=== PATIENT | female | born 1970 | race American Indian/Alaskan Native ===

== ENCOUNTER 2016-08-10 17:14 | Emergency (ER) | payer MEDICARE, OTHER ==
[2016-08-10 17:23] VITALS: TEMP 98.1; O2SAT 100
[2016-08-10 18:59] LABS: MEAN CELL VOLUME 77.6 fl (81.0-99.0); MEAN CORPUSCULAR HEMOGLOBIN 23.6 pg (27.0-31.0); MEAN CORPUSCULAR HGB CONC 30.4 g/dL (33.0-37.0); RED CELL DISTRIBUTION WIDTH 18.1 % (11.5-14.5); WHITE BLOOD COUNT 6.6 K/uL (4.8-10.8)
[2016-08-10 19:21] LABS: ALKALINE PHOSPHATASE 79 U/L (38-126); ALT/SGPT 15 U/L (9-52); AST/SGOT 29 U/L (14-36); BILIRUBIN,TOTAL 0.8 mg/dl (0.2-1.3); BLOOD UREA NITROGEN 15 mg/dl (7-17); CALCIUM 10.1 mg/dL (8.4-10.2); CARBON DIOXIDE 25 mmol/L (22-30); CHLORIDE 98 mmol/L (98-107); GFR AFRICAN-AMERICAN > 60; GLUCOSE,RANDOM 105 mg/dL (65-105); SODIUM 140 mmol/l (132-148); TOTAL PROTEIN 8.6 G/DL (6.3-8.2)
[2016-08-10 19:27] LABS: POTASSIUM 3.9 MMOL/L (3.6-5.0)
--- NOTE | 2016-08-10 19:31 | ED PDOC ---
HPI: Headache Time Seen by Provider: 08/10/16 17:25 Chief Complaint (Nursing): Headache Chief Complaint (Provider): Headache History Per: Patient History/Exam Limitations: no limitations Onset/Duration Of Symptoms: Days (x4), Gradual Current Symptoms Are (Timing): Better Severity: Moderate Quality: Other (left-sided) Associated Symptoms: denies: Blurred Vision, Nausea, Vomiting, Extremity Weakness Additional Complaint(s): Bowen Ahn is a 46 year old female, with a past medical history inclusive of HTN, who presents to the ED on 08/10/16 for the evaluation of a moderate, left-sided headache that she has experienced x4 days. Headache, further described as gradual onset, has only been transiently relieved with Tylenol x1, prompting today's ED visit. Denies vision loss, nausea, vomiting or extremity weakness. PMD: Jose Miguel Yip Past Medical History Reviewed: Historical Data, Nursing Documentation, Vital Signs Vital Signs: Last Vital Signs Temp 98.1 F 08/10/16 17:20 Pulse Resp 79 H 08/10/16 17:20 BP 120/85 08/10/16 17:20 Pulse Ox 100 08/10/16 17:20 - Medical History PMH: HTN - Surgical History Surgical History: No Surg Hx - Family History Family History: States: Unknown Family Hx - Home Medications Home Medications: Ambulatory Orders Medication Instructions Recorded LORazepam [Ativan] 1 mg PO Q8H PRN #5 tab 02/07/16 - Allergies Allergies/Adverse Reactions: Allergies Allergy/AdvReac Type Severity Reaction Status Date / Time Penicillins Allergy RASH Verified 02/07/16 00:18 Review of Systems ROS Statement: Except As Marked, All Systems Reviewed And Found Negative Eyes: Negative for: Vision Change Gastrointestinal: Negative for: Nausea, Vomiting Neurological: Positive for: Headache (left-sided, gradual onset). Negative for : Weakness Physical Exam - Reviewed Nursing Documentation Reviewed: Yes Vital Signs Reviewed: Yes - Physical Exam Appears: Positive for: Non-toxic, No Acute Distress Head Exam: Positive for: ATRAUMATIC, NORMAL INSPECTION, NORMOCEPHALIC Skin: Positive for: Normal Color, Warm, Dry Eye Exam: Positive for: Normal appearance, EOMI, PERRL Neck: Positive for: Normal, Painless ROM, Supple Cardiovascular/Chest: Positive for: Regular Rate, Rhythm. Negative for: Murmur Respiratory: Positive for: Normal Breath Sounds. Negative for: Respiratory Distress Extremity: Positive for: Normal ROM (FROM x4 extremities). 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 Negative for: Motor/Sensory Deficits, Aphasia, Facial Droop - Laboratory Results Result Diagrams: 08/10/16 18:52 08/10/16 18:52 - ECG O2 Sat by Pulse Oximetry: 100 (RA) Pulse Ox Interpretation: Normal Medical Decision Making Medical Decision Makin:25 Initial Impression: headache Initial Plan: * Labs * ESR * CRP * Reevaluation 19:30 Labs reviewed with no clinically significant abnormalities. Except ESR which is pending. Discussed with patient, who states she is concerned. PT took tylenol X [employer] and reports pain but does not want medication in ER. CT ordered. Upon provider reevaluation patient is medically stable and requires no further treatment in the ED at this time, will discharge home. Counseling provided regarding diagnosis and need for followup with her PMD should symptoms persist/ not improve. All questions answered. There is agreement to discharge plan, return for acute worsening of symptoms. Clinical Impression: headache Scribe Attestation: Documented by Carlene Gleason, acting as a scribe for Melani Montaño PA-C. Provider Scribe Attestation: All medical record entries made by the Scribe were at my direction and personally dictated by me. I have reviewed the chart and agree that the record accurately reflects my personal performance of the history, physical exam, medical decision making, and the department course for this patient. I have also personally directed, reviewed, and agree with the discharge instructions and disposition. Disposition - Clinical Impression Clinical Impression: Headache - Patient ED Disposition Is Patient to be Admitted: Transfer of Care - Disposition Referrals: Jose Miguel Yip MD [Primary Care Provider] - Disposition: Transfer of Care Disposition Time: 20:00 Condition: STABLE
--- NOTE | 2016-08-10 20:12 | ED PDOC ---
- Laboratory Results Result Diagrams: 08/10/16 18:52 08/10/16 18:52 - ECG O2 Sat by Pulse Oximetry: 100 (RA) Pulse Ox Interpretation: Normal - Other Rad CT head X-Ray: Read By Radiologist X-Ray Interpretation: no acute finding - Progress ED Course And Treament: Case was signed out to sql report writer from SAMARA Montaño pending CT head. Medical Decision Making Medical Decision Making: Patient is aware of CT results. She states headache relieved with tylenol. Patient was given copy of labs and was instructed to follow up with her PMD. Disposition - Clinical Impression Clinical Impression: Headache - POA Present On Arrival: None - Disposition Referrals: Jose Miguel Yip MD [Primary Care Provider] - Disposition: Routine/Home Disposition Time: 21:16 Condition: IMPROVED Additional Instructions: Continue Tylenol for pain as needed. Drink plenty of fluids. Follow up as scheduled next week with clinic or return any time if acutely worse. Instructions: General Headache (ED)
[2016-08-10 20:23] VITALS: BP 125/80; PULSE 75; RESP 16
--- NOTE | 2016-08-10 20:57 | CT ---
EXAM: CT Head Without Intravenous Contrast CLINICAL HISTORY: 46 years old, female; Pain; Headache; Headache not specified TECHNIQUE: Axial computed tomography images of the head/brain without intravenous contrast. This CT exam was performed using one or more of the following dose reduction techniques: automated exposure control, adjustment of the mA and/or kV according to patient size, and/or use of iterative reconstruction technique. Coronal and sagittal reformatted images were created and reviewed. COMPARISON: No relevant prior studies available. FINDINGS: Brain: No hemorrhage. No edema. Mild bilateral periventricular white matter hypoattenuation most consistent with mild chronic ischemic small vessel changes. Ventricles: No hydrocephalus. Bones: Skull is intact. Sinuses: No acute sinusitis. Mastoid air cells: No mastoid effusion. IMPRESSION: No CT evidence of acute intracranial abnormality.
== END 2016-08-10 21:24 | disposition home or self-care (01) ==
LOC: H.ER 17:14
DX: R51 Headache (principal); I10 Essential (primary) hypertension

== ENCOUNTER 2016-11-24 12:28 | Observation (INO) | payer MEDICARE, OTHER ==
[2016-11-24 12:37] VITALS: TEMP 98.7
[2016-11-24] MEDS ORDERED: Sodium Chloride 0.9% 1,000 ML IV STA (13:10)
--- NOTE | 2016-11-24 13:15 | ED PDOC ---
HPI: General Adult Time Seen by Provider: 11/24/16 12:38 Chief Complaint (Nursing): Dizziness/Lightheaded Chief Complaint (Provider): low blood pressure History Per: Patient History/Exam Limitations: no limitations Additional Complaint(s): Bowen Ahn is a 46 year old female, with a previous medical history of hypertension, who presents to the ED for the evaluation of low blood pressure which she reported to be 85/57 after accidentally taking an extra dose of her atenolol/chlorthalidone 100-25 pill earlier this morning. She reports taking the first pill 6.5 hours prior to arrival then forgetting that she took the initial pill and took another pill 3 hours after that. She denies any symptoms of fatigue, dizziness, visual changes, chest pain, shortness of breath, nausea, vomiting, abdominal pain, headache, numbness, tingling or weakness. She reports no active medical complaints at this time. PMD: Jose Mgiuel Yip MD Past Medical History Reviewed: Historical Data, Nursing Documentation, Vital Signs Vital Signs: Last Vital Signs Temp 98.7 F 11/24/16 12:34 Pulse 71 11/24/16 16:01 Resp 16 11/24/16 16:01 BP 111/65 11/24/16 16:01 Pulse Ox 99 11/24/16 16:01 - Medical History PMH: HTN - Surgical History Surgical History: No Surg Hx - Family History Family History: States: Unknown Family Hx - Social History Current smoker - smoking cessation education provided: No Alcohol: None Drugs: Denies - Home Medications Home Medications: Ambulatory Orders Medication Instructions Recorded LORazepam [Ativan] 1 mg PO Q8H PRN #5 tab 02/07/16 - Allergies Allergies/Adverse Reactions: Allergies Allergy/AdvReac Type Severity Reaction Status Date / Time Penicillins Allergy RASH Verified 11/24/16 12:33 Review of Systems ROS Statement: Except As Marked, All Systems Reviewed And Found Negative Eyes: Negative for: Vision Change Cardiovascular: Negative for: Chest Pain, Palpitations Respiratory: Negative for: Shortness of Breath Gastrointestinal: Negative for: Nausea, Vomiting, Abdominal Pain, Diarrhea Musculoskeletal: Negative for: Leg Pain Neurological: Negative for: Weakness, Numbness, Headache, Dizziness, Other ( tingling ) Physical Exam - Reviewed Nursing Documentation Reviewed: Yes Vital Signs Reviewed: Yes - Physical Exam Appears: Positive for: Well, Non-toxic, No Acute Distress Head Exam: Positive for: ATRAUMATIC, NORMAL INSPECTION, NORMOCEPHALIC Skin: Positive for: Normal Color, Warm, Dry Eye Exam: Positive for: Normal appearance, EOMI, PERRL. Negative for: Nystagmus ENT: Positive for: Normal ENT Inspection Neck: Positive for: Normal, Painless ROM Cardiovascular/Chest: Positive for: Regular Rate, Rhythm. Negative for: Murmur , Bradycardia, Tachycardia Respiratory: Positive for: CNT, Normal Breath Sounds Gastrointestinal/Abdominal: Positive for: Normal Exam, Bowel Sounds, Soft. Negative for: Tenderness Back: Positive for: Normal Inspection. Negative for: L CVA Tenderness, R CVA Tenderness Extremity: Positive for: Normal ROM. 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 Negative for: Motor/Sensory Deficits - Laboratory Results Result Diagrams: 11/24/16 13:30 11/24/16 13:30 Interpretation Of Abn Labs: 3.3 K; 9.1 hg - ECG ECG: Positive for: Interpreted By Me, Viewed By Me ECG Rhythm: Positive for: Normal QRS, Normal ST Segment, Sinus Rhythm O2 Sat by Pulse Oximetry: 98 (RA) Pulse Ox Interpretation: Normal Medical Decision Making Medical Decision Making: Initial Plan: * EKG * Troponin I * labs * IV NS 1,000 ml at 1,000 ml/hr * ED obs * reevaluation 13:09 Spoke with poison control who recommended patient be closely monitored for 3 hours and if continues to be stable is able to be discharged. Scribe Attestation: Documented by Bernice Henderson, acting as a scribe for Donald Baum MD. Provider Scribe Attestation: All medical record entries made by the Scribe were at my direction and personally dictated by me. I have reviewed the chart and agree that the record accurately reflects my personal performance of the history, physical exam, medical decision making, and the department course for this patient. I have also personally directed, reviewed, and agree with the discharge instructions and disposition. ED OBSERVATION Discharge: Yes Date of observation admission: 11/24/16 Time of observation admission: 13:11 - Observation admission statement Patient is being placed in observation because:: To continue monitoring blood pressure and symptoms. Patient is currently asymptomatic and stable. - Goals of Observation Goals of observation are:: Maintain stable blood pressure with no symptoms. - Progress Note Progress Note: 11/24/16 15:42 Patient is resting comfortably with blood pressure maintained. BP 111/65 11/24/16 16:41 AAOx3. Tolerated PO. Fu with pcp. Ambulated with no issues. Disposition - Clinical Impression Clinical Impression: Hypokalemia, Medication administered in error, Anemia - Patient ED Disposition Is Patient to be Admitted: No Counseled Patient/Family Regarding: Studies Performed, Diagnosis, Need For Followup - Disposition Disposition: Routine/Home Disposition Time: 16:42 Condition: STABLE
[2016-11-24 13:53] LABS: BASO % 0.7 % (0.0-2.0); EOS # 0.1 K/uL (0.0-0.7); EOS % 1.3 % (0.0-4.0); HEMOGLOBIN 9.1 g/dL (12.0-16.0); LYMPH # 1.7 K/uL (1.0-4.3); LYMPH % 34.4 % (20.0-40.0); MEAN CORPUSCULAR HEMOGLOBIN 22.1 pg (27.0-31.0); MEAN CORPUSCULAR HGB CONC 30.6 g/dL (33.0-37.0); MEAN PLATELET VOLUME 7.9 fl (7.2-11.7); MONO # 0.4 K/uL (0.0-0.8); NEUT # 2.7 K/uL (1.8-7.0); NEUT % 55.6 % (50.0-75.0); NRBC % 0.2 % (0.0-0.0); RBC 4.12 Mil/uL (3.80-5.20); RED CELL DISTRIBUTION WIDTH 17.9 % (11.5-14.5); WHITE BLOOD COUNT 4.9 K/uL (4.8-10.8)
[2016-11-24 13:55] LABS: ALB/GLOB RATIO 1.4 (1.0-2.1); ALBUMIN 4.6 g/dL (3.5-5.0); ALT/SGPT 34 U/L (9-52); AST/SGOT 21 U/L (14-36); BLOOD UREA NITROGEN 10 mg/dl (7-17); CALCIUM 9.3 mg/dL (8.4-10.2); GFR AFRICAN-AMERICAN > 60; GFR NON-AFRICAN AMERICAN > 60
[2016-11-24 16:02] VITALS: RESP 16
[2016-11-24] MEDS ORDERED: Potassium Chloride 20 mEq ER Tab PO ONE (16:40)
[2016-11-24 17:09] VITALS: BP 116/79; PULSE 95; O2SAT 99
--- NOTE | 2016-11-25 20:54 | CARD ---
APPROVED REPORT EKG Measurement Heart [id number] <Conclusion> Normal sinus rhythm Minimal voltage criteria for LVH, may be normal variant Borderline ECG
== END 2016-11-24 17:09 | disposition home or self-care (01) ==
LOC: H.ER 12:28 → H.EROBSV 13:10
PROVIDERS: ADMIT Emergency Medicine; ATTEND Emergency Medicine
DX: E87.6 Hypokalemia (principal); T44.7X1A Poisoning by beta-adrenoreceptor antagonists, accidental (unintentional), initial encounter; I95.2 Hypotension due to drugs; I10 Essential (primary) hypertension; D64.9 Anemia, unspecified; Z88.0 Allergy status to penicillin
CPT/HCPCS: 80053; 84484; 85025; 93005; 99284; G0378

== ENCOUNTER 2018-06-18 15:00 | Emergency (ER) | payer MEDICARE, OTHER ==
--- NOTE | 2018-06-18 16:41 | ED PDOC ---
HPI: Chest Pain Time Seen by Provider: 06/18/18 16:21 Chief Complaint (Nursing): Chest Pain Chief Complaint (Provider): Chest pain History Per: Patient History/Exam Limitations: no limitations Onset/Duration Of Symptoms: Days (3) Current Symptoms Are (Timing): Still Present Quality: Sharp, "Pain" Additional History Per: Patient Additional Complaint(s): 47yo female, history of hypertension, comes to ER reporting a sharp left sided chest pain x 3 days. She states the pain is present in her breast area, lasts several seconds and spontaneously resolves. Additionally reports the pain is triggered when laying flat or sitting up. She denies any associated cough, fever, nausea, vomiting or dizziness. No additional complaints. Patient is compliant with her home medications. PMD: Dr. Yip Past Medical History Reviewed: Historical Data, Nursing Documentation, Vital Signs Vital Signs: Last Vital Signs Temp 98.2 F 06/18/18 15:48 Pulse 73 06/18/18 15:48 Resp 16 06/18/18 15:48 BP 107/69 06/18/18 15:48 Pulse Ox 99 06/18/18 15:48 - Medical History PMH: HTN - Surgical History Surgical History: No Surg Hx - Family History Family History: States: Unknown Family Hx - Home Medications Home Medications: Ambulatory Orders Medication Instructions Recorded LORazepam [Ativan] 1 mg PO Q8H PRN #5 tab 02/07/16 - Allergies Allergies/Adverse Reactions: Allergies Allergy/AdvReac Type Severity Reaction Status Date / Time Penicillins Allergy RASH Verified 11/24/16 12:33 Review of Systems ROS Statement: Except As Marked, All Systems Reviewed And Found Negative Constitutional: Negative for: Fever, Chills Cardiovascular: Positive for: Chest Pain Respiratory: Negative for: Shortness of Breath Gastrointestinal: Negative for: Nausea, Vomiting Neurological: Negative for: Dizziness Physical Exam - Reviewed Nursing Documentation Reviewed: Yes Vital Signs Reviewed: Yes - Physical Exam Appears: Positive for: Non-toxic, No Acute Distress Head Exam: Positive for: ATRAUMATIC, NORMAL INSPECTION, NORMOCEPHALIC Skin: Positive for: Normal Color Eye Exam: Positive for: Normal appearance Neck: Positive for: Supple Cardiovascular/Chest: Positive for: Regular Rate, Rhythm, Chest Non Tender Respiratory: Positive for: Normal Breath Sounds. Negative for: Wheezing Gastrointestinal/Abdominal: Positive for: Normal Exam, Soft. Negative for: Tenderness Back: Positive for: Normal Inspection. Negative for: L CVA Tenderness, R CVA Tenderness Extremity: Positive for: Normal ROM Neurologic/Psych: Positive for: Alert, Oriented. Negative for: Motor/Sensory Deficits - Laboratory Results Result Diagrams: 06/18/18 17:44 06/18/18 17:44 - ECG ECG: Positive for: Interpreted By Me, Viewed By Me ECG Rhythm: Positive for: Normal QRS, Normal ST Segment, Sinus Rhythm. Negative for: ST/T Changes Rate: 65 O2 Sat by Pulse Oximetry: 99 (RA) Pulse Ox Interpretation: Normal Medical Decision Making Medical Decision Making: Left sided chest pain, rule out cardiac etiologu Plan: -- Labs -- EKG -- Toradol 15mg IV 1836 Labs reviewed and show no clinically significant abnormalities. HEART score: 2 (due to age and risk factors) Low risk of MACE On reassessment, patient states her symptoms have resolved and denies any chest pain; vital signs remain stable Patient informed of findings, and states she will follow up with her PMD Patient informed to return to ER if symptoms worsen or new symptoms arise --- Scribe Attestation: Documented by Jennifer Ortiz acting as a scribe for Lindsey Ahn MD. Provider Attestation: All medical record entries made by the Scribe were at my direction and personally dictated by me. I have reviewed the chart and agree that the record accurately reflects my personal performance of the history, physical exam, medical decision making, and the department course for this patient. I have also personally directed, reviewed, and agree with the discharge instructions and disposition. Disposition - Clinical Impression Clinical Impression: Acute chest pain - Disposition Disposition: Routine/Home Disposition Time: 18:39 Condition: IMPROVED Additional Instructions: Follow up with primary medical doctor for further cardiac workup. Return to the emergency department if symptoms worsen or if new symptoms develop. Instructions: Chest Pain (DC), Heart Disease in Women (DC) Forms: [facility] (British) Print Language: HEBREW
[2018-06-18 17:47] LABS: BASO % 0.6 % (0.0-2.0); EOS # 0.1 K/uL (0.0-0.7); EOS % 1.4 % (0.0-4.0); HEMOGLOBIN 12.8 g/dL (12.0-16.0); LYMPH # 1.5 K/uL (1.0-4.3); MEAN CELL VOLUME 96.4 fl (81.0-99.0); MEAN CORPUSCULAR HGB CONC 33.2 g/dL (33.0-37.0); MEAN PLATELET VOLUME 8.8 fl (7.2-11.7); MONO # 0.3 K/uL (0.0-0.8); NEUT # 2.6 K/uL (1.8-7.0); NRBC % 0.1 % (0.0-0.0); RBC 4.01 Mil/uL (3.80-5.20); RED CELL DISTRIBUTION WIDTH 14.8 % (11.5-14.5); WHITE BLOOD COUNT 4.5 K/uL (4.8-10.8)
[2018-06-18 18:03] LABS: BLOOD UREA NITROGEN 21 mg/dl (7-17); CALCIUM 9.3 mg/dL (8.4-10.2); GFR NON-AFRICAN AMERICAN > 60
--- NOTE | 2018-06-18 18:47 | RAD ---
Date of service: 06/18/2018 HISTORY: possible admission COMPARISON: 11/10/2012 FINDINGS: LUNGS: No active pulmonary disease. PLEURA: No significant pleural effusion identified, no pneumothorax apparent. CARDIOVASCULAR: No atherosclerotic calcification present Normal. OSSEOUS STRUCTURES: No significant abnormalities. VISUALIZED UPPER ABDOMEN: Normal. OTHER FINDINGS: None. IMPRESSION: No active disease. No significant interval change compared to the prior examination(s).
[2018-06-18 18:48] VITALS: BP 101/69; RESP 14; TEMP 98.3
--- NOTE | 2018-06-19 10:03 | CARD ---
APPROVED REPORT Date of service: 06/18/2018 EKG Measurement Heart [id number] <Conclusion> Normal sinus rhythm Minimal voltage criteria for LVH, may be normal variant Borderline ECG
[2018-06-22 09:22] VITALS: PULSE 65; O2SAT 99
== END 2018-06-18 18:48 | disposition home or self-care (01) ==
LOC: H.ER 15:00
DX: R07.89 Other chest pain (principal); I10 Essential (primary) hypertension; Z88.0 Allergy status to penicillin